=== PATIENT | female | born 1985 | race Two or more races ===

== ENCOUNTER → 2022-03-19 14:58 | Emergency (ER) | payer MEDICAID, OTHER ==
[~2022-03-19] VITALS: Ht 160 cm; Wt 82.0 kg
[~2022-03-19 14:58] MED LIST: ASPirin 325 MG TAB PO ONE; NITROGLYCERIN 0.4 MG SL TAB SL ONE
[2022-03-19 15:41] LABS: Basophils # (auto) 0.1 10 ^3/uL (0-0.2); Eosinophils # (auto) 0.2 10 ^3/uL (0-0.8); Eosinophils % (auto) 2.3 % (0.0-7.0); Hematocrit 42.9 % (36.0-46.0); Hemoglobin 14.4 g/dL (12.2-16.2); Lymphocytes # (auto) 1.8 10 ^3/uL (0.4-5.4); Lymphocytes % (auto) 21.1 % (10.0-50.0); Mean Corpuscular Hemoglobin 27.3 pg (28.0-32.0); Mean Corpuscular Hgb Conc. 33.6 g/dL (32.0-36.0); Mean Corpuscular Volume 81.3 fL (80.0-100.0); Monocytes # (auto) 0.5 10 ^3/uL (0-1.3); Monocytes % (auto) 6.1 % (0.0-12.0); Neutrophils # (auto) 5.8 10 ^3/uL (1.6-8.6); Neutrophils % (auto) 69.5 % (37.0-80.0); Nucleated Red Blood Cells % 0.1 %; Red Blood Cells 5.28 10^6/uL (4.0-5.20); Red Cell Distribution Width 14.5 % (11.8-14.3); White Blood Cell 8.4 10^3/uL (4.4-10.8)
[2022-03-19 15:59] LABS: Albumin 3.9 g/dL (3.4-5.0); Calcium 9.9 mg/dL (8.5-10.1)
[2022-03-19 16:02] LABS: BUN/Creatinine Ratio 14.5
[2022-03-19 16:05] LABS: Bilirubin, Total 0.6 mg/dL (0.2-1.0); Total Protein 7.8 g/dL (6.4-8.2)
[2022-03-20 00:59] VITALS: BP 136/105
== END | disposition home or self-care (01) ==
LOC: ER 14:58
DX: R07.89 Other chest pain (principal); Z87.891 Personal history of nicotine dependence
CPT/HCPCS: 36415; 71045; 80053; 84484; 85025; 85379; 93005

== ENCOUNTER 2022-04-05 09:27 | Emergency (ER) | payer MEDICAID ==
[~2022-04-05] VITALS: Ht 160 cm; Wt 97.1 kg
[2022-04-05] MEDS ORDERED: PRED20TA2 PO (10:20)
[2022-04-05] MEDS ORDERED: AUG875T PO (10:20)
[2022-04-05] MEDS ORDERED: IBUP800T27 PO (10:20)
[2022-04-05 10:38] VITALS: BP 126/90
== END 2022-04-05 10:43 | disposition home or self-care (01) ==
LOC: ER 09:27
DX: J01.90 Acute sinusitis, unspecified (principal); H66.92 Otitis media, unspecified, left ear